=== PATIENT | male | born 1935 | race Caucasian/White ===

== ENCOUNTER 2018-01-26 05:00 | Emergency (ER) | payer OTHER ==
[~2018-01-26] VITALS: Ht 190.5 cm; Wt 79.4 kg
[~2018-01-26 05:00] MED LIST: LEVSOD50 PO; LEVSOD75 PO
== END 2018-01-26 06:45 | disposition home or self-care (01) ==
LOC: ER 05:00
DX: R04.0 Epistaxis (principal); Z79.899 Other long term (current) drug therapy; Z87.891 Personal history of nicotine dependence
CPT/HCPCS: 99282

== ENCOUNTER → 2019-01-03 | Outpatient (CLI) | payer OTHER ==
[~2019-01-03] MED LIST changes: +BENZ100A PO; +ELIQUIS5 MG PO; +GUAIFENESIN AC473 ML PO; +Hydrocortisone5 MG PO; +Miralax17 GM PO; +ROPI1 PO; +Ventolin/Prove6.7 GM INH
[2019-01-03 18:19] LABS: BASOPHILS ABSOLUTE AUTO 0.03 K/mm3 (0.00-0.23); BASOPHILS PERCENT AUTO 1 % (0-2); EOSINOPHILS ABSOLUTE AUTO 0.12 K/mm3 (0.00-0.68); EOSINOPHILS PERCENT AUTO 2 % (0-6); Hematocrit 42.1 % (37.0-53.0); IMMATURE GRAN ABSOLUTE AUTO 0.01 K/mm3 (0.00-0.10); IMMATURE GRAN PERCENT AUTO 0 % (0-1); LYMPHOCYTES PERCENT AUTO 43 % (21-46); MONOCYTES ABSOLUTE AUTO 0.66 K/mm3 (0.16-1.47); MONOCYTES PERCENT AUTO 13 % (4-13); Mean Corpuscular HGB Conc 33.3 g/dL (31.5-36.5); Mean Corpuscular Volume 96 fL (80-100); NEUTROPHILS ABSOLUTE AUTO 2.08 K/mm3 (1.96-9.15); NEUTROPHILS PERCENT AUTO 41 % (41-73); RDW Coefficient Variation 13.7 % (11.7-14.2); RDW Standard Deviation 49.1 fL (35.1-46.3); Red Blood Cell Count 4.37 M/mm3 (4.30-5.90)
[2019-01-03 18:28] LABS: Alanine Aminotransfer (ALT/SGP 26 U/L (12-78); Albumin, Blood 3.4 g/dL (3.4-5.0); Albumin/Globulin Ratio 1.1 (0.8-1.8); Alk Phos 82 U/L (40-126); Anion Gap 7 mmol/L (6-16); Aspartate Aminotrans (AST/SGOT 21 U/L (12-37); Bilirubin, Total 0.8 mg/dL (0.1-1.0); Blood Urea Nitrogen 23 mg/dL (8-24); Bun/Creatinine Ratio 22.5 (12.0-20.0); CO2, Blood 32 mmol/L (21-32); Calcium, Blood 8.8 mg/dL (8.5-10.1); Chloride, Blood 106 mmol/L (98-108); Creatinine, Blood 1.02 mg/dL (0.60-1.20); Globulin, Blood 3.2 g/dL (2.2-4.0); Glomerular Filtration Rate >60 (60-); Glucose, Blood 88 mg/dL (70-99); Potassium, Blood 3.9 mmol/L (3.5-5.5); Sodium, Blood 145 mmol/L (136-145); Thyroid Stimulating Hormone 0.374 uIU/mL (0.360-4.800); Total Protein, Blood 6.6 g/dL (6.4-8.2)
[2019-01-03 18:56] LABS: Mean Platelet Volume 10.7 fL (9.1-12.4); Platelet Count 133 K/mm3 (150-400)
== END | disposition home or self-care (01) ==
LOC: LAB SHORT 18:05 → LAB EV 18:05
PROVIDERS: Physician Assistant
DX: R53.83 Other fatigue (principal); R31.21 Asymptomatic microscopic hematuria
CPT/HCPCS: 80053; 84443; 85025; 87086

== ENCOUNTER 2019-07-08 07:03 | Emergency (ER) | payer OTHER ==
[~2019-07-08] VITALS: Ht 190.5 cm; Wt 81.7 kg
[2019-07-08 07:58] LABS: BASOPHILS ABSOLUTE AUTO 0.04 K/mm3 (0.00-0.23); BASOPHILS PERCENT AUTO 1 % (0-2); EOSINOPHILS ABSOLUTE AUTO 0.19 K/mm3 (0.00-0.68); EOSINOPHILS PERCENT AUTO 4 % (0-6); Hematocrit 42.7 % (37.0-53.0); Hemoglobin 13.9 g/dL (13.5-17.5); IMMATURE GRAN ABSOLUTE AUTO 0.02 K/mm3 (0.00-0.10); IMMATURE GRAN PERCENT AUTO 0 % (0-1); LYMPHOCYTES ABSOLUTE AUTO 1.72 K/mm3 (0.84-5.20); LYMPHOCYTES PERCENT AUTO 36 % (21-46); MONOCYTES ABSOLUTE AUTO 0.76 K/mm3 (0.16-1.47); MONOCYTES PERCENT AUTO 16 % (4-13); Mean Corpuscular HGB 31.5 pg (26.0-34.0); Mean Corpuscular HGB Conc 32.6 g/dL (31.5-36.5); Mean Corpuscular Volume 97 fL (80-100); NEUTROPHILS ABSOLUTE AUTO 2.02 K/mm3 (1.96-9.15); NEUTROPHILS PERCENT AUTO 43 % (41-73); Platelet Count 118 K/mm3 (150-400); RDW Coefficient Variation 13.8 % (11.7-14.2); RDW Standard Deviation 49.1 fL (35.1-46.3); Red Blood Cell Count 4.41 M/mm3 (4.30-5.90); White Blood Cell Count 4.75 K/mm3 (4.00-11.30)
[2019-07-08 08:16] LABS: Alanine Aminotransfer (ALT/SGP 33 U/L (12-78); Albumin, Blood 3.4 g/dL (3.4-5.0); Alk Phos 89 U/L (50-136); Anion Gap 4 mmol/L (6-16); Aspartate Aminotrans (AST/SGOT 30 U/L (12-37); Bilirubin, Total 0.9 mg/dL (0.1-1.0); Blood Urea Nitrogen 17 mg/dL (8-24); Bun/Creatinine Ratio 20.8 (12.0-20.0); CO2, Blood 30 mmol/L (21-32); Calcium, Blood 8.7 mg/dL (8.5-10.1); Chloride, Blood 108 mmol/L (98-108); Creatinine, Blood 0.82 mg/dL (0.60-1.20); Globulin, Blood 3.3 g/dL (2.2-4.0); Glomerular Filtration Rate >60 (60-); Glucose, Blood 87 mg/dL (70-99); Potassium, Blood 3.8 mmol/L (3.5-5.5); Sodium, Blood 142 mmol/L (136-145); Total Protein, Blood 6.7 g/dL (6.4-8.2)
[2019-07-08 08:24] LABS: Source, Urine Voided
[2019-07-08 08:27] LABS: Bilirubin, Urine Neg (Neg); Blood, Urine Neg (Neg); Glucose Qualitative, Urine Neg (Neg); Ketones, Urine Neg (Neg); Leukocyte Esterase, Urine 1+ (Neg); Nitrite, Urine Neg (Neg); Protein, Urine Neg (Neg); Specific Gravity, Urine 1.015 (1.003-1.022); Urobilinogen, Urine NORM (Normal)
[2019-07-08 08:33] LABS: Magnesium, Blood 2.1 mg/dL (1.6-2.4)
[2019-07-08 08:37] LABS: Thyroid Stimulating Hormone 1.15 uIU/mL (0.360-4.800)
[2019-07-08 08:39] LABS: Appearance, Urine Clear (Clear); Bacteria Not Seen /hpf; Color, Urine Yellow (P-Yellow); Red Blood Cells, Urine Not Seen /hpf (0-2); Squamous Epithelial Cells Not Seen /hpf (Few); White Blood Cells, Urine Rare /hpf (0-5)
== END 2019-07-08 09:35 | disposition home or self-care (01) ==
LOC: ER 07:03
PROVIDERS: Emergency Medicine
DX: R10.9 Unspecified abdominal pain (principal); M62.81 Muscle weakness (generalized); I48.91 Unspecified atrial fibrillation; F03.90 Unspecified dementia, unspecified severity, without behavioral disturbance, psychotic disturbance, mood disturbance, and anxiety; E03.9 Hypothyroidism, unspecified; Z87.891 Personal history of nicotine dependence; Z79.899 Other long term (current) drug therapy; Z79.01 Long term (current) use of anticoagulants
CPT/HCPCS: 36415; 71046; 74018; 80053; 81001; 83735; 84443; 85025; 87086; 93005; 93010; 99284-25

== ENCOUNTER → 2020-02-15 | Outpatient (CLI) | payer OTHER ==
[2020-02-15 12:55] LABS: BASOPHILS ABSOLUTE AUTO 0.03 K/mm3 (0.00-0.23); BASOPHILS PERCENT AUTO 1 % (0-2); EOSINOPHILS ABSOLUTE AUTO 0.14 K/mm3 (0.00-0.68); EOSINOPHILS PERCENT AUTO 3 % (0-6); Hematocrit 42.5 % (37.0-53.0); IMMATURE GRAN ABSOLUTE AUTO 0.02 K/mm3 (0.00-0.10); IMMATURE GRAN PERCENT AUTO 0 % (0-1); LYMPHOCYTES ABSOLUTE AUTO 1.65 K/mm3 (0.84-5.20); LYMPHOCYTES PERCENT AUTO 34 % (21-46); MONOCYTES ABSOLUTE AUTO 0.66 K/mm3 (0.16-1.47); MONOCYTES PERCENT AUTO 14 % (4-13); Mean Corpuscular HGB 31.5 pg (26.0-34.0); Mean Corpuscular HGB Conc 32.9 g/dL (31.5-36.5); Mean Corpuscular Volume 96 fL (80-100); NEUTROPHILS ABSOLUTE AUTO 2.38 K/mm3 (1.96-9.15); NEUTROPHILS PERCENT AUTO 49 % (41-73); RDW Standard Deviation 49.4 fL (35.1-46.3); Red Blood Cell Count 4.44 M/mm3 (4.30-5.90); White Blood Cell Count 4.88 K/mm3 (4.00-11.30)
[2020-02-15 13:12] LABS: Alanine Aminotransfer (ALT/SGP 20 U/L (12-78); Albumin, Blood 3.4 g/dL (3.4-5.0); Albumin/Globulin Ratio 0.9 (0.8-1.8); Alk Phos 86 U/L (40-126); Anion Gap 9 mmol/L (6-16); Aspartate Aminotrans (AST/SGOT 23 U/L (12-37); Bilirubin, Total 0.9 mg/dL (0.1-1.0); Blood Urea Nitrogen 16 mg/dL (8-24); Bun/Creatinine Ratio 17.2 (12.0-20.0); CO2, Blood 29 mmol/L (21-32); Calcium, Blood 8.9 mg/dL (8.5-10.1); Chloride, Blood 106 mmol/L (98-108); Creatinine, Blood 0.93 mg/dL (0.60-1.20); Globulin, Blood 3.6 g/dL (2.2-4.0); Glomerular Filtration Rate >60 (60-); Glucose, Blood 91 mg/dL (70-99); Potassium, Blood 3.9 mmol/L (3.5-5.5); Sodium, Blood 144 mmol/L (136-145); Thyroid Stimulating Hormone 0.266 uIU/mL (0.360-4.800)
[2020-02-15 13:22] LABS: Platelet Count 133 K/mm3 (150-400)
[2020-02-15 13:23] LABS: Mean Platelet Volume 11.3 fL (9.1-12.4)
== END | disposition home or self-care (01) ==
LOC: LAB SHORT 12:40 → LAB EV 12:40
PROVIDERS: Physician Assistant Medical
DX: R53.83 Other fatigue (principal)
CPT/HCPCS: 80053; 84443; 85025

== ENCOUNTER → 2020-02-23 | Outpatient (CLI) | payer OTHER ==
[2020-02-23 12:42] LABS: Stool Occult Bld Immuno 1 Positive (NEGATIVE)
== END | disposition home or self-care (01) ==
LOC: LAB SHORT 10:13 → LAB 10:13
PROVIDERS: Physician Assistant Medical
DX: R19.7 Diarrhea, unspecified (principal)
CPT/HCPCS: 82274

== ENCOUNTER → 2020-03-29 | Outpatient (CLI) | payer OTHER ==
[2020-03-29 09:02] LABS: BASOPHILS ABSOLUTE AUTO 0.02 K/mm3 (0.00-0.23); BASOPHILS PERCENT AUTO 0 % (0-2); EOSINOPHILS PERCENT AUTO 4 % (0-6); Hematocrit 40.3 % (37.0-53.0); Hemoglobin 13.4 g/dL (13.5-17.5); IMMATURE GRAN ABSOLUTE AUTO 0.01 K/mm3 (0.00-0.10); IMMATURE GRAN PERCENT AUTO 0 % (0-1); LYMPHOCYTES ABSOLUTE AUTO 1.81 K/mm3 (0.84-5.20); LYMPHOCYTES PERCENT AUTO 37 % (21-46); MONOCYTES ABSOLUTE AUTO 0.76 K/mm3 (0.16-1.47); MONOCYTES PERCENT AUTO 15 % (4-13); Mean Corpuscular HGB 32.1 pg (26.0-34.0); Mean Corpuscular HGB Conc 33.3 g/dL (31.5-36.5); Mean Corpuscular Volume 96 fL (80-100); NEUTROPHILS ABSOLUTE AUTO 2.12 K/mm3 (1.96-9.15); NEUTROPHILS PERCENT AUTO 43 % (41-73); RDW Coefficient Variation 13.8 % (11.7-14.2); RDW Standard Deviation 48.6 fL (35.1-46.3); Red Blood Cell Count 4.18 M/mm3 (4.30-5.90); White Blood Cell Count 4.92 K/mm3 (4.00-11.30)
[2020-03-29 09:19] LABS: Alanine Aminotransfer (ALT/SGP 22 U/L (12-78); Albumin, Blood 3.4 g/dL (3.4-5.0); Alk Phos 85 U/L (40-126); Anion Gap 6 mmol/L (6-16); Aspartate Aminotrans (AST/SGOT 22 U/L (12-37); Bilirubin, Total 0.8 mg/dL (0.1-1.0); Blood Urea Nitrogen 17 mg/dL (8-24); Bun/Creatinine Ratio 19.5 (12.0-20.0); CO2, Blood 33 mmol/L (21-32); Calcium, Blood 9.1 mg/dL (8.5-10.1); Chloride, Blood 105 mmol/L (98-108); Creatinine, Blood 0.87 mg/dL (0.60-1.20); Free Thyroxine 1.17 ng/dL (0.70-1.60); Globulin, Blood 3.4 g/dL (2.2-4.0); Glomerular Filtration Rate >60 (60-); Glucose, Blood 64 mg/dL (70-99); Potassium, Blood 3.7 mmol/L (3.5-5.5); Sodium, Blood 144 mmol/L (136-145); Thyroid Stimulating Hormone 0.285 uIU/mL (0.360-4.800); Total Protein, Blood 6.8 g/dL (6.4-8.2)
[2020-03-29 10:12] LABS: Mean Platelet Volume 11.1 fL (9.1-12.4); Platelet Count 124 K/mm3 (150-400)
[2020-03-29 12:22] LABS: Percent Saturation 24.4 % (20.0-50.0)
== END | disposition home or self-care (01) ==
LOC: LAB SHORT 08:48 → LAB EV 08:48
DX: M79.2 Neuralgia and neuritis, unspecified (principal); E03.9 Hypothyroidism, unspecified; D64.9 Anemia, unspecified; E61.1 Iron deficiency
CPT/HCPCS: 80053; 82607; 82728; 82746; 83036; 83540; 83550; 84439; 84443; 84481; 85025; 86592

== ENCOUNTER → 2020-11-27 | Outpatient (CLI) | payer OTHER ==
[~2020-11-27] MED LIST changes: +AMOCLA875 PO; +ELIQUIS2.5 MG PO; +FURO40 PO; +LEVSOD100 PO; +Loratadine10 MG; +MEMA10 PO; +POLY500 PO; +POTA10T PO; +Vitamin B Comple1 EA PO
== END | disposition home or self-care (01) ==
LOC: LAB SHORT 11:39 → PLD 11:39
DX: C44.519 Basal cell carcinoma of skin of other part of trunk (principal)
CPT/HCPCS: 88305

== ENCOUNTER 2022-01-30 15:20 | Inpatient (IN) | payer OTHER ==
[~2022-01-30] VITALS: Ht 190.5 cm; Wt 84.3 kg
[~2022-01-30 15:20] MED LIST changes: +C COMPLEX1000 M1 PO; +FISH OIL 1,2001 EAC7 PO; +POTASSIUM GLUCO99 M1 PO; +VITAMIN D5000 UNIT PO
[2022-01-30 16:32] LABS: BASOPHILS ABSOLUTE AUTO 0.03 K/mm3 (0.00-0.23); BASOPHILS PERCENT AUTO 0 % (0-2); EOSINOPHILS ABSOLUTE AUTO 0.12 K/mm3 (0.00-0.68); EOSINOPHILS PERCENT AUTO 1 % (0-6); Hematocrit 45.3 % (37.0-53.0); Hemoglobin 14.6 g/dL (13.5-17.5); IMMATURE GRAN ABSOLUTE AUTO 0.02 K/mm3 (0.00-0.10); IMMATURE GRAN PERCENT AUTO 0 % (0-1); LYMPHOCYTES ABSOLUTE AUTO 1.77 K/mm3 (0.84-5.20); LYMPHOCYTES PERCENT AUTO 19 % (21-46); MONOCYTES ABSOLUTE AUTO 0.96 K/mm3 (0.16-1.47); MONOCYTES PERCENT AUTO 10 % (4-13); Mean Corpuscular HGB 31.9 pg (26.0-34.0); Mean Corpuscular HGB Conc 32.2 g/dL (31.5-36.5); Mean Corpuscular Volume 99 fL (80-100); Mean Platelet Volume 10.9 fL (9.1-12.4); NEUTROPHILS ABSOLUTE AUTO 6.64 K/mm3 (1.96-9.15); NEUTROPHILS PERCENT AUTO 70 % (41-73); Platelet Count 116 K/mm3 (150-400); RDW Coefficient Variation 13.7 % (11.7-14.2); RDW Standard Deviation 49.8 fL (35.1-46.3); Red Blood Cell Count 4.58 M/mm3 (4.30-5.90); White Blood Cell Count 9.54 K/mm3 (4.00-11.30)
[2022-01-30 16:44] LABS: Alanine Aminotransfer (ALT/SGP 21 U/L (12-78); Albumin, Blood 3.6 g/dL (3.4-5.0); Albumin/Globulin Ratio 0.9 (0.8-1.8); Alk Phos 79 U/L (50-136); Anion Gap 3 mmol/L (6-16); Aspartate Aminotrans (AST/SGOT 21 U/L (12-37); Bilirubin, Total 1.3 mg/dL (0.1-1.0); Blood Urea Nitrogen 20 mg/dL (8-24); Bun/Creatinine Ratio 26.7 (12.0-20.0); CO2, Blood 32 mmol/L (21-32); Calcium, Blood 9.3 mg/dL (8.5-10.1); Chloride, Blood 102 mmol/L (98-108); Creatinine, Blood 0.75 mg/dL (0.60-1.20); Globulin, Blood 3.8 g/dL (2.2-4.0); Glomerular Filtration Rate >60 (60-); Glucose, Blood 103 mg/dL (70-99); Magnesium, Blood 2.3 mg/dL (1.6-2.4); Potassium, Blood 3.9 mmol/L (3.5-5.5); Sodium, Blood 137 mmol/L (136-145); Total Protein, Blood 7.4 g/dL (6.4-8.2)
[2022-01-30 19:29] LABS: Source, Urine Clean Catch
[2022-01-30 19:32] LABS: Appearance, Urine Clear (Clear); Bilirubin, Urine Neg (Neg); Blood, Urine Neg (Neg); Color, Urine Amber (P-Yellow); Glucose Qualitative, Urine Neg (Neg); Ketones, Urine 2+ (Neg); Leukocyte Esterase, Urine Neg (Neg); Nitrite, Urine Neg (Neg); Protein, Urine 2+ (Neg); Specific Gravity, Urine 1.025 (1.003-1.022); Urobilinogen, Urine NORM (Normal)
[2022-01-30 19:38] LABS: Bacteria Few /hpf; Mucus Mod (0-Heavy); Red Blood Cells, Urine 0-2 /hpf (0-2); Squamous Epithelial Cells Rare /hpf (Few); White Blood Cells, Urine 0-2 /hpf (0-5)
[2022-01-30 19:59] LABS: International Normalized Ratio 1.22; Prothrombin Time Results 12.6 Sec (9.7-11.5)
[2022-01-30 20:23] LABS: Hematocrit 43.2 % (37.0-53.0); Hemoglobin 13.7 g/dL (13.5-17.5); Mean Corpuscular HGB 31.4 pg (26.0-34.0); Mean Corpuscular HGB Conc 31.7 g/dL (31.5-36.5); Mean Corpuscular Volume 99 fL (80-100); Mean Platelet Volume 11.1 fL (9.1-12.4); Platelet Count 106 K/mm3 (150-400); RDW Coefficient Variation 13.5 % (11.7-14.2); RDW Standard Deviation 49.8 fL (35.1-46.3); Red Blood Cell Count 4.36 M/mm3 (4.30-5.90); White Blood Cell Count 10.39 K/mm3 (4.00-11.30)
--- NOTE | 2022-01-30 22:51 | NUR ---
ATTEMPTED TO CALL FOR REPORT ON PATIENT; RN BUSY; WILL CALL BACK
--- NOTE | 2022-01-30 23:50 | NUR ---
NS ORDERED; PATIENT HAS CRACKLES IN BASES AND HX OF CHF; HOSPITALIST NOTIFIED AND ORDERS TO HOLD NS FOR NOW.
--- NOTE | 2022-01-31 00:49 | NUR ---
ASSUMED CARE OF PATIENT AT APPROXIMATELY [id number] FROM PSYCHOLOGIST PERSONNELBEVERLY TAPIA. PATIENT ALERT AND ORIENTED TO SELF, LOCATION, AND . PATIENT FORGETFUL AND REPORTS MEMORY ISSUES. PATIENT REPORTS HE LIVES AT [facility]; NEEDS ASSISTANCE WITH MEDICATION FROM NURSE THAT PUTS HIS MEDICATION TOGETHER BUT SHE IS NOT AVAILABLE UNTIL THURSDAY AND THE MED REC IS NOT COMPLETED YET; PATIENT REPORTED HE WILL CALL NIECE IN AM; SHE LIVES IN [place] BUT IS AWARE OF HISTORY AND MEDICATIONS. PATIENT REPORTS PAIN IN MID ABDOMEN AND IN SPINE; MEDICATED PER EMAR WITH FENTANYL WITH GOOD RESULTS. PATIENT DENIES NUMBNESS, TINGLING, DIZZINESS OR NAUSEA. AFIB ON TELE IN 60'S; OXYGEN SATURATION ABOVE 90% ON ROOM AIR; REPORTS HAS A CPAP AT HOME BUT CANNOT TOLERATE USING IT. HEPARIN GTT.
--- NOTE | 2022-01-31 01:30 | NUR ---
PATIENT REPORTS PAIN IN MID ABDOMEN AT 4/10; FENTANYL GIVEN 1.5 HOURS AGO; WILL CALL HOSPITALIST TO UPDATE.
--- NOTE | 2022-01-31 01:41 | NUR ---
CALLED DR. GARCIA TO REPORT PATIENT'S PAIN AT A 4 1.5 HOURS AFTER ADMINISTRATION OF IV FENTANYL. ORDERS FOR 1MG DILAUDID 1MG IV PRN Q6 TO OVERLAP FENTANYL.
[2022-01-31 04:17] LABS: BASOPHILS ABSOLUTE AUTO 0.03 K/mm3 (0.00-0.23); BASOPHILS PERCENT AUTO 0 % (0-2); EOSINOPHILS ABSOLUTE AUTO 0.06 K/mm3 (0.00-0.68); EOSINOPHILS PERCENT AUTO 1 % (0-6); Hematocrit 39.7 % (37.0-53.0); Hemoglobin 12.9 g/dL (13.5-17.5); IMMATURE GRAN ABSOLUTE AUTO 0.03 K/mm3 (0.00-0.10); IMMATURE GRAN PERCENT AUTO 0 % (0-1); LYMPHOCYTES ABSOLUTE AUTO 1.89 K/mm3 (0.84-5.20); LYMPHOCYTES PERCENT AUTO 20 % (21-46); MONOCYTES ABSOLUTE AUTO 1.07 K/mm3 (0.16-1.47); MONOCYTES PERCENT AUTO 11 % (4-13); Mean Corpuscular HGB 31.4 pg (26.0-34.0); Mean Corpuscular HGB Conc 32.5 g/dL (31.5-36.5); Mean Corpuscular Volume 97 fL (80-100); NEUTROPHILS ABSOLUTE AUTO 6.52 K/mm3 (1.96-9.15); NEUTROPHILS PERCENT AUTO 68 % (41-73); Platelet Count 112 K/mm3 (150-400); RDW Coefficient Variation 13.6 % (11.7-14.2); RDW Standard Deviation 48.6 fL (35.1-46.3); Red Blood Cell Count 4.11 M/mm3 (4.30-5.90)
[2022-01-31 04:37] LABS: CPK Creatine Kinase 49 U/L (39-308)
--- NOTE | 2022-01-31 05:23 | NUR ---
PATIENT REPORTS PAIN IS THE WORST IT HAS BEEN IN ABDOMEN; ABDOMEN NOT TENDER TO TOUCH; WILL UPDATE HOSPITALIST
--- NOTE | 2022-01-31 05:35 | NUR ---
DR. GARCIA NOTIFIED THAT PAIN IS THE WORSE PER REPORT OF PATIENT. ORDERS TO INCREASE DILAUDID TO Q4 PRN FROM Q6 PRN AND CAN GIVE ONE DOSE 30 MINUTES EARLY SINCE LAST DOSE WAS AT 0158.
--- NOTE | 2022-01-31 06:03 | NUR ---
PATIENT REPORTS RELIEVE FROM IV DILAUDID.
--- NOTE | 2022-01-31 06:31 | NUR ---
PATIENT SLEPT ABOUT AN HOUR LAST NIGHT; HEPARIN GTT TITRATED UP ONCE PER ORDER. NO OTHER ACUTE CHANGES TO REPORT.
[2022-01-31 12:44] LABS: CPK Creatine Kinase 60 U/L (39-308)
--- NOTE | 2022-01-31 17:25 | NUR ---
SHIFT SUMMARY PT REMAINS ALERT AND ORIENTED. BP STABLE. HR PACED AT 60 AT THIS TIME. O2 SATS REMAIN ABOVE 90% ON RA. PT HAS DENIED PAIN TO HIS ABD ALL SHIFT. PT ABLE TO STAND AND VOID USING THE URINAL WITH MINIMAL ASSITANCE. NO BM THIS SHIFT, BUT PT PASSING FLATULUS. HEP GTT INFUSING PER ORDERS. DIET ADVANCED TO FULL LIQUIDS AND PT TOLERATING WELL. WILL CONTINUE TO MONITOR AND REPORT TO ONCOMING RN
--- NOTE | 2022-01-31 21:55 | NUR ---
UPDATE PT REQUESTING IV PAIN MEDICATION "TO HELP ME SLEEP". PT EDUCATED ON NEED FOR NARCOTIC PAIN MEDICATION AND THE DANGERS OF SAYING HE IS HAVING PAIN WHEN HE DOESNT. PT AGREED BUT IS NOT HAPPY THAT HE CANNOT GET SOMETHING HE SAYS IS "STRONG" TO HELP HIM SLEEP. FORGING MACHINE HAND NOTIFIED.
--- NOTE | 2022-01-31 23:18 | NUR ---
UPDATE PT REPORTING SIGNIFICANT PAIN IN ABDOMEN, SPECIFICALLY IN HIS LLQ. PT'S ABDOMEN APPEARS SLIGHTLY MORE DISTENDED THAN IT HAD PREVIOUSLY AT THE START OF THE SHIFT. BS ARE PRESENT IN ALL 4 QUADRANTS. PT MEDICATED PER SALAS HERBERT.
--- NOTE | 2022-02-01 00:19 | NUR ---
UPDATE PT'S TELE CONTINUING TO SHOW "FAILURE TO CAPTURE" W A HR IN THE 50'S. INTERROGATION PERFORMED BY COFFEE SUPERVISORBEVERLY Gomes, RESULTS PENDING. PT ASYMPTOMATIC DURING EPISODES OF BRADYCARDIA.
[2022-02-01 01:00] LABS: BASOPHILS ABSOLUTE AUTO 0.02 K/mm3 (0.00-0.23); BASOPHILS PERCENT AUTO 0 % (0-2); EOSINOPHILS ABSOLUTE AUTO 0.12 K/mm3 (0.00-0.68); EOSINOPHILS PERCENT AUTO 2 % (0-6); Hematocrit 39.6 % (37.0-53.0); Hemoglobin 12.9 g/dL (13.5-17.5); IMMATURE GRAN ABSOLUTE AUTO 0.03 K/mm3 (0.00-0.10); IMMATURE GRAN PERCENT AUTO 0 % (0-1); LYMPHOCYTES ABSOLUTE AUTO 1.47 K/mm3 (0.84-5.20); LYMPHOCYTES PERCENT AUTO 19 % (21-46); MONOCYTES ABSOLUTE AUTO 1.04 K/mm3 (0.16-1.47); MONOCYTES PERCENT AUTO 13 % (4-13); Mean Corpuscular HGB 31.7 pg (26.0-34.0); Mean Corpuscular HGB Conc 32.6 g/dL (31.5-36.5); Mean Corpuscular Volume 97 fL (80-100); Mean Platelet Volume 10.8 fL (9.1-12.4); NEUTROPHILS ABSOLUTE AUTO 5.08 K/mm3 (1.96-9.15); NEUTROPHILS PERCENT AUTO 66 % (41-73); Platelet Count 106 K/mm3 (150-400); RDW Coefficient Variation 13.4 % (11.7-14.2); RDW Standard Deviation 48.3 fL (35.1-46.3); Red Blood Cell Count 4.07 M/mm3 (4.30-5.90); White Blood Cell Count 7.76 K/mm3 (4.00-11.30)
[2022-02-01 01:14] LABS: Anion Gap 5 mmol/L (6-16); Blood Urea Nitrogen 19 mg/dL (8-24); Bun/Creatinine Ratio 26.6 (12.0-20.0); CO2, Blood 32 mmol/L (21-32); Calcium, Blood 8.2 mg/dL (8.5-10.1); Chloride, Blood 102 mmol/L (98-108); Creatinine, Blood 0.72 mg/dL (0.60-1.20); Glomerular Filtration Rate >60 (60-); Glucose, Blood 101 mg/dL (70-99); Potassium, Blood 3.5 mmol/L (3.5-5.5); Sodium, Blood 139 mmol/L (136-145)
--- NOTE | 2022-02-01 05:38 | NUR ---
COMMERCIAL APPRAISER SUMMARY PT IS ALERT BUT IS OFTEN CONFUSED ABOUT TIME AND SITUATION. PT HAS BEEN REPORTING SEVERE PAIN ON AND OFF THROUGHOUT THE SHIFT WHICH HAS BEEN HARD FOR THIS RN TO READ HE HAS A VERY FLAT DEMEANOR BUT REPORTS A "BURNING/SHARP" PAIN IN HIS ABDOMEN. TREATED PER EMAR W RELIEF. NO BOWEL MOVEMENT THIS SHIFT AND THE PT DENIES BEING ABLE TO PASS ANY GAS. BS ARE ACTIVE X4. VSS AND O2 SATS >90% ON RM AIR. TELE HAVING FUSION BEATS SHOWING A PACED RYTHYM BUT SLOW 45 W PAUSES. PACEMAKER INTERROGATED THIS SHIFT SHOWING NORMAL FUNCTION OF PACEMEAKER. HEPARIN GTT RUNNING ALL SHIFT W NO DOSE ADJUSTMENTS. WILL REPORT TO ONCOMING RN.
--- NOTE | 2022-02-01 16:44 | NUR ---
SHIFT SUMMARY PT REMAINS ALERT AND ORIENTED THIS SHIFT. VS STABLE. O2 SATS HAVE REMAINED ABOVE 90% ON RA. PT HAS DENIES ANY PAIN THROUGHOUT THE SHIFT. BT HEARD IN ALL QUADRANTS. HEP GTT DISCONTINUED TODAY AFTER ELIQUIS WAS STARTED. PT ABLE TO AMBULATE TO BATHROOM WITH 1 ASSIST AND FWW. NO BM THIS SHIFT, BUT PT ABLE TO PASS FLATULAS. WILL CONTINUE TO MONITOR AND REPORT TO ONCOMING RN
--- NOTE | 2022-02-01 21:20 | NUR ---
PATIENT A/OX3, IT DID TAKE HIM A WHILE TO REMEMBER THE MONTH, YEAR, AND PLACE BUT HE DID GIVE THE CORRECT ANSWERS. STATES THAT HE HAS A HISTORY OF DEMENTIA. DENIES PAIN BUT STATES THAT HIS ABDOMEN FEELS "UNCOMFORTABLE". ABDOMEN IS DISTENDED AND FIRM. HYPERACTIVE BOWEL SOUNDS HEARD IN ALL FOUR QUADRANTS. DENIES TENDERNESS UPON PALPATION. REPORTS PASSING SMALL AMOUNT OF GAS. STATES THAT IT FEELS LIKE HE NEEDS TO HAVE A BOWEL MOVEMENT. STATES LAST BOWEL MOVEMENT WAS "MAYBE THURSDAY" PRIOR TO HIS PACEMAKER INSERTION THIS WEEK. MIRALAX GIVEN PER EMAR. DENIES NAUSEA. DRESSING TO PACEMAKER SITE IS CLEAN WITH NO DRAINAGE NOTED. DRESSING WAS COMING UP SO I REINFORCED IT WITH MEDIPORE TAPE. DISCUSSED POC FOR SHIFT. CALL LIGHT IN REACH. BED ALARM ON FOR SAFETY.
--- NOTE | 2022-02-02 06:02 | NUR ---
SHIFT SUMMARY: PATIENT A/OX3 BUT IS FORGETFUL AT TIMES. HAD LOW BACK PAIN WHICH WAS RELIEVED AFTER TYLENOL AND SOME SLEEP. HE REPORTS THAT HE WAS ABLE TO SLEEP FOR SEVERAL HOURS. WAS ON 2L O2 VIA NC FOR SLEEP BUT NOW HE IS ON ROOM AIR AND SPO2 IS >90%. SAYS THAT HE HAS OXYGEN AVAILABLE AT HOME. HE SAYS THAT HE FEELS LIKE HE NEEDS TO HAVE A BOWEL MOVEMENT BUT IS UNABLE, SAYS THAT HIS LAST BOWEL MOVEMENT WAS BEFORE HIS PACEMAKER PLACEMENT (01/29). MIRALAX AND COFFEE GIVEN. HE CONTINUES TO HAVE BOWEL SOUNDS AND ABDOMEN IS NONTENDER, REPORTS PASSING GAS. POST PACEMAKER ACTIVITY RESTRICTIONS FOLLOWED. POSSIBLE DISCHARGE HOME WITH HOME HEALTH TODAY. WILL CONTINUE TO MONITOR AND REPORT TO ONCOMING RN.
[2022-02-02] MEDS ORDERED: TRAZ50 PO (10:48)
[2022-02-02] MEDS ORDERED: MIRALAX1712 PO (10:48)
[2022-02-02] MEDS ORDERED: MELATONIN5 M1 PO (15:25)
--- NOTE | 2022-02-02 16:17 | NUR ---
PT REMAINED ALERT AND ORIENTED ALL SHIFT. VS STABLE. PT DENIES ANY PAIN ALL SHIFT. ORDERS FOR DISCHARGE. DC INSTRUCTIONS PROVIDED. PT EDUCATED ON ALL MEDICATION CHANGES. ALL QUESTIONS ANSWERED. PT TAKEN OUT BY BAY
== END 2022-02-02 16:00 | disposition home or self-care (01) | DRG 300 ==
LOC: ER 15:20 → PCU 22:05
PROVIDERS: Internal Medicine; Physician Assistant; Student in an Organized Health Care Education/Training Program; ADMIT Internal Medicine
DX: I77.79 Dissection of other specified artery (principal); E27.40 Unspecified adrenocortical insufficiency; I48.11 Longstanding persistent atrial fibrillation; D47.1 Chronic myeloproliferative disease; R77.8 Other specified abnormalities of plasma proteins; Z66 Do not resuscitate; J43.9 Emphysema, unspecified; G47.00 Insomnia, unspecified; I50.9 Heart failure, unspecified; F03.90 Unspecified dementia, unspecified severity, without behavioral disturbance, psychotic disturbance, mood disturbance, and anxiety; G47.33 Obstructive sleep apnea (adult) (pediatric); I48.91 Unspecified atrial fibrillation; E03.9 Hypothyroidism, unspecified; I49.5 Sick sinus syndrome; Z79.01 Long term (current) use of anticoagulants; Z79.899 Other long term (current) drug therapy; Z95.0 Presence of cardiac pacemaker; Z90.49 Acquired absence of other specified parts of digestive tract; Z98.890 Other specified postprocedural states
CPT/HCPCS: 36415; 71045; 71260; 74177; 80048; 80053; 81001; 82550; 83605; 83615; 83690; 83735; 84484; 85025; 85027; 85610; 85730; 86850; 86900; 86901; 93005; 93010; 94762; 96374; 96375; 97110; 97162; 99285-25; A9270; J1170; J1644; J2270; J2405; J3010; J7030; Q9967

== ENCOUNTER 2022-02-11 09:11 | Emergency (ER) | payer OTHER ==
[~2022-02-11] VITALS: Ht 190.5 cm; Wt 83.9 kg
[~2022-02-11 09:11] MED LIST changes: +MELATONIN5 M1 PO; +MIRALAX1712 PO; +TRAZ50 PO
[2022-02-11 10:24] LABS: BASOPHILS ABSOLUTE AUTO 0.05 K/mm3 (0.00-0.23); BASOPHILS PERCENT AUTO 1 % (0-2); EOSINOPHILS ABSOLUTE AUTO 0.16 K/mm3 (0.00-0.68); EOSINOPHILS PERCENT AUTO 2 % (0-6); Hematocrit 42.1 % (37.0-53.0); Hemoglobin 13.6 g/dL (13.5-17.5); IMMATURE GRAN ABSOLUTE AUTO 0.01 K/mm3 (0.00-0.10); IMMATURE GRAN PERCENT AUTO 0 % (0-1); LYMPHOCYTES ABSOLUTE AUTO 2.08 K/mm3 (0.84-5.20); LYMPHOCYTES PERCENT AUTO 32 % (21-46); MONOCYTES ABSOLUTE AUTO 0.88 K/mm3 (0.16-1.47); MONOCYTES PERCENT AUTO 13 % (4-13); Mean Corpuscular HGB 31.8 pg (26.0-34.0); Mean Corpuscular HGB Conc 32.3 g/dL (31.5-36.5); Mean Corpuscular Volume 98 fL (80-100); Mean Platelet Volume 10.6 fL (9.1-12.4); NEUTROPHILS ABSOLUTE AUTO 3.43 K/mm3 (1.96-9.15); NEUTROPHILS PERCENT AUTO 52 % (41-73); Platelet Count 188 K/mm3 (150-400); RDW Coefficient Variation 13.5 % (11.7-14.2); RDW Standard Deviation 48.8 fL (35.1-46.3); Red Blood Cell Count 4.28 M/mm3 (4.30-5.90); White Blood Cell Count 6.61 K/mm3 (4.00-11.30)
[2022-02-11 10:43] LABS: Alanine Aminotransfer (ALT/SGP 27 U/L (12-78); Albumin, Blood 3.3 g/dL (3.4-5.0); Alk Phos 77 U/L (50-136); Anion Gap 6 mmol/L (6-16); Aspartate Aminotrans (AST/SGOT 20 U/L (12-37); Bilirubin, Total 0.7 mg/dL (0.1-1.0); Blood Urea Nitrogen 13 mg/dL (8-24); Bun/Creatinine Ratio 15.8 (12.0-20.0); CO2, Blood 31 mmol/L (21-32); Calcium, Blood 9.1 mg/dL (8.5-10.1); Chloride, Blood 101 mmol/L (98-108); Creatinine, Blood 0.82 mg/dL (0.60-1.20); Globulin, Blood 3.3 g/dL (2.2-4.0); Glomerular Filtration Rate >60 (60-); Glucose, Blood 90 mg/dL (70-99); Potassium, Blood 3.9 mmol/L (3.5-5.5); Sodium, Blood 138 mmol/L (136-145); Total Protein, Blood 6.6 g/dL (6.4-8.2)
[2022-02-11 11:28] LABS: Source, Urine Clean Catch
[2022-02-11 11:40] LABS: Bilirubin, Urine Neg (Neg); Blood, Urine Neg (Neg); Glucose Qualitative, Urine Neg (Neg); Ketones, Urine Neg (Neg); Leukocyte Esterase, Urine Neg (Neg); Nitrite, Urine Neg (Neg); Protein, Urine Neg (Neg); Specific Gravity, Urine 1.015 (1.003-1.022); Urobilinogen, Urine NORM (Normal)
[2022-02-11 11:46] LABS: Appearance, Urine Clear (Clear); Color, Urine Yellow (P-Yellow)
== END 2022-02-11 11:30 | disposition home or self-care (01) ==
LOC: ER 09:11
PROVIDERS: Physician Assistant
DX: K92.1 Melena (principal); M54.50 Low back pain, unspecified; E03.9 Hypothyroidism, unspecified; J43.9 Emphysema, unspecified; I49.5 Sick sinus syndrome; Z95.0 Presence of cardiac pacemaker; Z79.899 Other long term (current) drug therapy
CPT/HCPCS: 36415; 80053; 81003; 82272; 83605; 85025; 93005; 93010; 99283-25

== ENCOUNTER 2022-07-21 11:09 | Day surgery (SDC) | payer OTHER ==
[~2022-07-21] VITALS: Ht 190.5 cm; Wt 82.0 kg
--- NOTE | 2022-07-21 15:17 | NUR ---
PT UP AND DRESSED PER SELF. TO BATHROOM AND BACK. R GROIN SITE REMAINS STABLE. DISCHARGE REVIEWED WITH PT TWICE, VERBALIZES UNDERSTANDING OF INSTRUCTIONS. PT TO PRIVATE VEHICLE PER W/C WITH ONE STAFF.
== END 2022-07-21 15:23 | disposition home or self-care (01) ==
LOC: MHTC 11:09
DX: I72.8 Aneurysm of other specified arteries (principal); I70.8 Atherosclerosis of other arteries; I77.79 Dissection of other specified artery; F03.90 Unspecified dementia, unspecified severity, without behavioral disturbance, psychotic disturbance, mood disturbance, and anxiety; I50.9 Heart failure, unspecified; E03.9 Hypothyroidism, unspecified; I48.11 Longstanding persistent atrial fibrillation; Z95.0 Presence of cardiac pacemaker; Z87.891 Personal history of nicotine dependence; Z79.01 Long term (current) use of anticoagulants
CPT/HCPCS: 37242; 75726; 75774; 76937; 99152; 99153; C1760; C1769; C1887; C1894; J2250; J3010; J7030; Q9967

== ENCOUNTER 2022-07-22 08:48 | Emergency (ER) | payer OTHER ==
[~2022-07-22] VITALS: Ht 190.5 cm; Wt 86.2 kg
[2022-07-22 09:50] LABS: BASOPHILS ABSOLUTE AUTO 0.03 K/mm3 (0.00-0.23); BASOPHILS PERCENT AUTO 1 % (0-2); EOSINOPHILS ABSOLUTE AUTO 0.06 K/mm3 (0.00-0.68); EOSINOPHILS PERCENT AUTO 1 % (0-6); Hematocrit 40.7 % (37.0-53.0); Hemoglobin 13.4 g/dL (13.5-17.5); IMMATURE GRAN ABSOLUTE AUTO 0.01 K/mm3 (0.00-0.10); IMMATURE GRAN PERCENT AUTO 0 % (0-1); LYMPHOCYTES ABSOLUTE AUTO 1.28 K/mm3 (0.84-5.20); LYMPHOCYTES PERCENT AUTO 20 % (21-46); MONOCYTES ABSOLUTE AUTO 0.82 K/mm3 (0.16-1.47); MONOCYTES PERCENT AUTO 13 % (4-13); Mean Corpuscular HGB 32.4 pg (26.0-34.0); Mean Corpuscular HGB Conc 32.9 g/dL (31.5-36.5); Mean Corpuscular Volume 99 fL (80-100); NEUTROPHILS ABSOLUTE AUTO 4.24 K/mm3 (1.96-9.15); NEUTROPHILS PERCENT AUTO 66 % (41-73); Platelet Count 121 K/mm3 (150-400); RDW Coefficient Variation 13.6 % (11.7-14.2); RDW Standard Deviation 49.3 fL (35.1-46.3); Red Blood Cell Count 4.13 M/mm3 (4.30-5.90); White Blood Cell Count 6.44 K/mm3 (4.00-11.30)
[2022-07-22 10:07] LABS: Albumin, Blood 3.4 g/dL (3.4-5.0); Albumin/Globulin Ratio 1.1 (0.8-1.8); Bilirubin, Total 1.1 mg/dL (0.1-1.0); Bun/Creatinine Ratio 24.4 (12.0-20.0); Calcium, Blood 8.6 mg/dL (8.5-10.1); Creatinine, Blood 0.7 mg/dL (0.60-1.20); Globulin, Blood 3.1 g/dL (2.2-4.0); Potassium, Blood 3.8 mmol/L (3.5-5.5); Total Protein, Blood 6.5 g/dL (6.4-8.2)
== END 2022-07-22 16:45 | disposition home or self-care (01) ==
LOC: ER 08:48
PROVIDERS: Emergency Medicine
DX: R10.10 Upper abdominal pain, unspecified (principal); R79.89 Other specified abnormal findings of blood chemistry; F03.90 Unspecified dementia, unspecified severity, without behavioral disturbance, psychotic disturbance, mood disturbance, and anxiety; E03.9 Hypothyroidism, unspecified; Z95.0 Presence of cardiac pacemaker; Z79.890 Hormone replacement therapy; Z79.02 Long term (current) use of antithrombotics/antiplatelets; Z79.899 Other long term (current) drug therapy
CPT/HCPCS: 36415; 71046; 74177; 80053; 83690; 84484; 85025; 93005; 93010; 99284-25; A9270; Q9967

== ENCOUNTER → 2023-03-31 | Outpatient (CLI) | payer OTHER ==
[2023-03-31 13:53] LABS: BASOPHILS ABSOLUTE AUTO 0.04 K/mm3 (0.00-0.23); BASOPHILS PERCENT AUTO 1 % (0-2); EOSINOPHILS ABSOLUTE AUTO 0.18 K/mm3 (0.00-0.68); EOSINOPHILS PERCENT AUTO 4 % (0-6); Hematocrit 41.5 % (37.0-53.0); Hemoglobin 13.8 g/dL (13.5-17.5); IMMATURE GRAN ABSOLUTE AUTO 0.01 K/mm3 (0.00-0.10); IMMATURE GRAN PERCENT AUTO 0 % (0-1); LYMPHOCYTES ABSOLUTE AUTO 1.56 K/mm3 (0.84-5.20); LYMPHOCYTES PERCENT AUTO 32 % (21-46); MONOCYTES ABSOLUTE AUTO 0.62 K/mm3 (0.16-1.47); MONOCYTES PERCENT AUTO 13 % (4-13); Mean Corpuscular HGB 32.5 pg (26.0-34.0); Mean Corpuscular HGB Conc 33.3 g/dL (31.5-36.5); Mean Corpuscular Volume 98 fL (80-100); NEUTROPHILS ABSOLUTE AUTO 2.53 K/mm3 (1.96-9.15); NEUTROPHILS PERCENT AUTO 51 % (41-73); RDW Coefficient Variation 14.2 % (11.7-14.2); RDW Standard Deviation 50.9 fL (35.1-46.3); Red Blood Cell Count 4.25 M/mm3 (4.30-5.90); White Blood Cell Count 4.94 K/mm3 (4.00-11.30)
[2023-03-31 14:03] LABS: Albumin, Blood 3.5 g/dL (3.4-5.0); Bilirubin, Total 0.8 mg/dL (0.1-1.0); Bun/Creatinine Ratio 19.1 (12.0-20.0); Calcium, Blood 9.4 mg/dL (8.5-10.1); Creatinine, Blood 0.94 mg/dL (0.60-1.20); Globulin, Blood 3.5 g/dL (2.2-4.0); Potassium, Blood 3.8 mmol/L (3.5-5.5)
[2023-03-31 14:12] LABS: Platelet Count 122 K/mm3 (150-400)
== END | disposition home or self-care (01) ==
LOC: LAB SHORT 13:48 → LAB 13:48
PROVIDERS: Physician Assistant
DX: R53.83 Other fatigue (principal)
CPT/HCPCS: 80053; 84484; 85025